=== PATIENT | female | born 1995 | race Caucasian/White ===

== ENCOUNTER 2024-02-22 05:25 | Inpatient (IN) ==
--- NOTE | 2024-02-15 10:34 | PAT Medication Instructions ---
Medication Instructions Date of Service February 15, 2024 Home Medications Medication Instructions Recorded acetone (urine) test (Ketone Urine #50 ea 01/04/24 Test strips) blood sugar diagnostic (OneTouch #350 ea 01/04/24 Verio test strips) blood-glucose meter (OneTouch #1 ea 01/04/24 Verio Reflect Meter) lancets 33 gauge (OneTouch Delica #150 ea 01/04/24 Plus Lancet) vit 168-iron 27 mg-folic acid 800 mcg-omega3 235 mg capsule (One-A-Day -1) 1 cap PO DAILY heparin, porcine (PF) 5,000 unit/0.5 mL subcutaneous syringe 5,000 unit subcut Q12H ASK your prescriber and surgeon heparin, porcine (PF) 5,000 unit/0.5 mL subcutaneous syringe 5,000 unit subcut Q12H DO NOT take the morning of surgery vit 168-iron 27 mg-folic acid 800 mcg-omega3 235 mg capsule (One-A-Day -1) 1 cap PO DAILY Other Notes *NOTHING TO EAT OR DRINK AFTER MIDNIGHT* If you have any questions please call us at [phone] or [phone] or [phone] or [phone]
--- NOTE | 2024-02-19 09:28 | Anesthesiology Consultation ---
Date of Service February 19, 2024 Assessment & Plan (1) Encounter for pre-operative examination: - Infectious disease screening: Per assessment on 02/15/24: No known infectious disease contacts or current infectious disease symptoms. No noted recent Covid positive test result. - [facility] ER visit (01/21/24): "The patient is a 28-year-old female who states that she is currently 36 weeks , presents the emergency department with chief complaint of right lower extremity edema.. Ultrasound imaging of the right lower extremity was obtained and there is no evidence of DVT. Patient's lab work is without any critical findings otherwise. Patient denies any chest pain or shortness of breath. On my reassessment patient is resting comfortably in bed. She will be discharged with plan for PCP and [facility] follow-up. She will continue to take her Lovenox as prescribed. Patient was advised utilize compression stockings to the right lower extremity to help with peripheral edema." - Heparin instructions: Reviewed with Dr. Riley- recommendation to stop 24 hours prior to d/t neuraxial anesthesia. Patient seen at [facility] and confirmed that she was already advised last dose to be 02/20/24. Chart Review Chart Review: Acceptable Risk for Surgery and Patient seen in Pre Admission Testing History Surgery Operation Date: 02/22/24 07:30 Proposed Procedures p Section - Thi Rodriguez MD, FACOG Height/Weight Height: 5 ft 8 in Weight: 95.8 kg Allergies Allergy/AdvReac Type Severity Reaction Status Date / Time No Known Allergies Allergy Verified 02/19/24 13:44 Medications Home Medications Medication Instructions Recorded Confirmed Last Taken vit 168-iron 27 mg-folic 1 cap PO DAILY 07/08/23 02/22/24 02/21/24 acid 800 mcg-omega3 235 mg capsule (One-A-Day -1) acetone (urine) test (Ketone Urine #50 ea 01/04/24 02/22/24 Unknown Test strips) blood sugar diagnostic (OneTouch #350 ea 01/04/24 02/22/24 Unknown Verio test strips) blood-glucose meter (OneTouch #1 ea 01/04/24 02/22/24 Unknown Verio Reflect Meter) lancets 33 gauge (OneTouch Delica #150 ea 01/04/24 02/22/24 Unknown Plus Lancet) heparin, porcine (PF) 5,000 5,000 unit subcut Q12H 02/15/24 02/22/24 02/20/24 unit/0.5 mL subcutaneous syringe Past Medical History Medical History Factor V Leiden mutation Gestational diabetes Hx of blood clots JAMAL (2022), currently on heparin injection Anxiety Hx GERD (gastroesophageal reflux disease) Hx, no current issues Exercise / Class Metabolic Activity II 4-5 Yardwork/Stairs/Walk up hill Past Family History Family History Father Diabetes Past Surgical History Surgical History No history of previous surgery Past Anesthesia History No Hx of Anesthesia Complications and No Family Hx of Anesthesia Complications History of PONV No Hx of PONV and Hx of Motion Sickness Social History Smoking Status: Never smoker Do You Dip or Chew Tobacco: No Hx Alcohol Use: Yes (not while ) alcohol intake frequency: holidays/special occasions only Hx Substance Use: No substance use type: does not use Review of Systems Patient denies chest pain, shortness of breath, dyspnea on exertion, fever, chills, cough, wheezing, palpitations. Physical Exam Vital Signs Last Vital Signs Temp 37.0 C 02/22/24 06:14 Pulse 116 H 02/22/24 05:48 Resp 18 02/22/24 06:14 BP 125/78 02/22/24 05:48 BP 106/69 P 80 TEMP 98.8 SP02 95%RA RESP 18 Physical Full cervical extension range of motion. Full TMJ range of motion. TMD > 3.5 finger breaths Mallampati Score 2 Dentition: intact Lungs: clear throughout to auscultation Cardiac: regular rate and rhythm, no murmurs noted Spine: normal Extremities: no LE edema Lab Results Anesthesia Preop Results Results Anesthesia Widget: 2 WBC 10.87 K/ul (4.8-10.8) H 02/22/24 Hgb 13.1 g/dl (12.0-16.0) 02/22/24 Hct 38.4 % (37.0-47.0) 02/22/24 Plt 219 K/uL (130-400) 02/22/24 Na 133 mmol/L (136-145) L 01/21/24 K 3.9 mmol/L (3.5-5.1) 01/21/24 Cl 104 mmol/L (98-107) 01/21/24 CO2 20 mmol/L (21-32) L 01/21/24 BUN 7 mg/dl (6-23) 01/21/24 Creat 0.42 mg/dl (0.6-1.2) L 01/21/24 Glucose Level 81 mg/dl (70-99(Fasting)) 01/21/24 POC Glucose 96 mg/dl (70-99) 02/22/24 PT 9.9 Seconds (9.0-12.0) 01/21/24 INR 0.9 (0.9-1.1) 01/21/24 Blood Type O Positive 02/22/24 Antibody Screen NEGATIVE 02/22/24 Testing Laboratory Results 02/22/24 05:40 Blood Type O Positive 02/22/24 05:40 Antibody Screen NEGATIVE 02/22/24 05:40 02/22/24 05:55 POC Glucose 96 Other Testing Venous doppler study Date: 01/21/24 FINDINGS: Deep veins: Unremarkable. No DVT in the visualized common femoral, femoral, proximal deep femoral or popliteal veins. The veins demonstrate normal color flow, are normally compressible, with normal phasic flow and/or augmentation response. Superficial veins: Unremarkable. No thrombus in the visualized great saphenous vein. Soft tissues: No acute findings. No popliteal cyst. IMPRESSION: Normal right lower extremity duplex venous ultrasound.
--- NOTE | 2024-02-19 16:44 | History & Physical Report ---
Date of Service February 19, 2024 Assessment & Plan (1) Gestational diabetes mellitus (GDM) affecting , antepartum: (2) Group beta Strep positive: (3) Factor V Leiden mutation: Plan Still breech, plan primary ltcs. The risks of surgery were discussed with the patient including the risks of anesthesia, bleeding requiring transfusion, infection, poor wound healing, urinary retention, damage to surrounding structures including bowels, bladder, vessels, nerves and ureters that may require further surgery, hospitalization or intervention. The other risks of any surgery were discussed including heart attack, blood clots, stroke or . Discussed risk of injury to the baby. Last dose of heparin Sat night, none on thursday. Plan to restart Lovenox PP. Questions asked and answered and consent signed. History of Present Illness Chief Complaint: breech Primary Care Provider: Estefania Lester PA-C Patient is a 28yowf with iup at 39 2/7 weeks with a breech baby. >95% head circumference and lga on measurement. GBS positive. GDM diet controlled. Is on heparin for hx of superficial blood clot and Factor V heterozygote. and Delivery Plans Factov V Leiden - heterozygous, personal h/o superficial thrombophlebitis *Heme consult (11/12/22) -Lovenox > Heparin at 36 weeks Positive lupus anticoagulant prior to *Recommend rpt and additional labs that patient has not completed GBS positive urine-treat in labor GDM w/28wk glucola *Begin monthly Growth US's Suspected LGA - EFW/AC >98% at 34 weeks - Growth US at 37/38 weeks - Offer IOL at 39 weeks - If cephalic BREECH PRESENTATION C/S SCHEDULED FOR 02/22/[address] BENAVIDEZ PAT CONSULT SCHEDULED FOR 02/18 @ 1517 FOR HEPARIN OB Labs: Blood Type O Positive 07/15/23 Antibody Screen NEGATIVE 07/15/23 Hemoglobin 12.9 g/dl (12.0-16.0) 01/21/24 Hematocrit 37.0 % (37.0-47.0) 01/21/24 Mean Corpuscular Volume 89.4 fL (80.0-100.0) 01/21/24 Platelet Count 189 K/uL (130-400) 01/21/24 Rubella IgG Antibody Immune (Immune) 07/15/23 Rapid Plasma Reagin Nonreactive (Nonreactive) 07/15/23 Hepatitis B Surface Antigen. NON-REACTIVE (NON-REACTIVE) 07/15/23 Hepatitis C Antibody (EIA) NON-REACTIVE (NON-REACTIVE) 07/15/23 HIV (1&2) Ag and Ab Confirmation NON-REACTIVE (NON-REACTIVE) 07/15/23 Glucose 1 Hour 50 gm Load 168 mg/dl (70-130) H 12/10/23 OB Optional Labs: Chlamydia trachomatis RNA Not Detected (NotDetected) 07/15/23 Neisseria gonorrhoeae RNA Not Detected (NotDetected) 07/15/23 Thyroid Stimulating Hormone (TSH) 3.900 uIu/ml (0.300-4.500) 08/17/21 Labs Reviewed: Declines genetics--mln gbs positive Allergies Allergy/AdvReac Type Severity Reaction Status Date / Time No Known Allergies Allergy Verified 02/19/24 13:44 Home Medications Medication Instructions Recorded Confirmed Type vit 168-iron 27 mg-folic 1 cap PO DAILY 07/08/23 02/19/24 History acid 800 mcg-omega3 235 mg capsule (One-A-Day -1) acetone (urine) test (Ketone Urine #50 ea 01/04/24 02/19/24 Rx Test strips) blood sugar diagnostic (OneTouch #350 ea 01/04/24 02/19/24 Rx Verio test strips) blood-glucose meter (OneTouch #1 ea 01/04/24 02/19/24 Rx Verio Reflect Meter) lancets 33 gauge (OneTouch Delica #150 ea 01/04/24 02/19/24 Rx Plus Lancet) heparin, porcine (PF) 5,000 5,000 unit subcut Q12H 02/15/24 02/19/24 History unit/0.5 mL subcutaneous syringe Patient History Medical History (Updated 02/19/24 @ 16:46 by Thi Benavidez MD, FACOG) Factor V Leiden mutation Gestational diabetes Hx of blood clots LUE (2022), currently on heparin injection Anxiety Hx GERD (gastroesophageal reflux disease) Hx, no current issues Surgical History No history of previous surgery Family History Father Diabetes Social History Smoking Status: Never smoker Second Hand Exposure: No; Do You Dip or Chew Tobacco: No; Hx Alcohol Use: Yes (not while ) Hx Substance Use: No Preferred Language: Marshallese Communication Ability: Effective Senior Chemical Process Engineer Required: No Beliefs That Will Affect Care: None marital status: Single marital status details: Hugo (27) [phone] Current Living Situation: Parent and Significant Other Current Living Situation Comment: lives with fob, 2 dogs. 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
[2024-02-22] MEDS: LACTATED RINGER'S 1,000 ML IV SCH (05:40)
[2024-02-22 06:15] LABS: Basophils # (auto) 0.03 K/uL (0.00-0.20); Basophils % (auto) 0.3 %; Eosinophils # (auto) 0.04 K/uL (0.00-0.50); Eosinophils % (auto) 0.4 %; Hematocrit (blood only) 38.4 % (37.0-47.0); Hemoglobin 13.1 g/dl (12.0-16.0); Immature Granulocytes # (auto) 0.05 K/uL (0.01-0.20); Immature Granulocytes % (auto) 0.5 %; Lymphocytes % (auto) 23.9 %; Mean Corpuscular Hemoglobin 30.5 pg (25.0-34.0); Mean Corpuscular Hgb Conc 34.1 g/dL (32.0-36.0); Mean Corpuscular Volume 89.5 fL (80.0-100.0); Mean Platelet Volume 10.7 fL (9.4-12.4); Monocytes # (auto) 0.95 K/uL (0.11-0.59); Monocytes % (auto) 8.7 %; Neutrophils % (auto) 66.2 %; Platelet Count 219 K/uL (130-400); RDW Coefficient of Variation 12.2 % (11.5-14.5); RDW Standard Deviation 39.7 fL (36.4-46.3); Red Blood Count 4.29 M/uL (4.20-5.40); White Blood Count 10.87 K/ul (4.8-10.8)
[2024-02-22] MEDS ORDERED: LACTATED RINGER'S 1,000 ML IV SCH ×2 (06:30→10:16)
[2024-02-22] MEDS ORDERED: MoRPHine SULFATE PF 1 MG/ML 10 ML AMP/VIAL ONE (07:09)
--- NOTE | 2024-02-22 07:26 | History & Physical Bridge Note ---
Date of Service February 22, 2024 History & Physical Bridge Note I have examined the patient, reviewed the History & Physical and in the interval since the performance of the History & Physical I have noted the following changes of clinical significance: still breech by ultrasound. No changes.
[2024-02-22] MEDS: CITRIC ACID/SODIUM CITRATE 15 ML UDC PO SCH (07:31)
[2024-02-22] MEDS: ceFAZolin 2000MG 2,000 MG/15 ML SYR IV SCH (07:31)
[2024-02-22] MEDS ORDERED: NALOXONE HCL 0.08 MG in SYRINGE 1.8 ML IV PRN (08:04)
[2024-02-22] MEDS ORDERED: LACTATED RINGER'S 500 ML IV PRN (08:04)
[2024-02-22] MEDS ORDERED: NALOXONE HCL 1 MG in SODIUM CHLORIDE 0.9% 1,000 ML IV PRN (08:04)
[2024-02-22] MEDS ORDERED: MoRPHine SULFATE 2 MG/ML CARP IV PRN (08:04)
[2024-02-22] MEDS ORDERED: NALBUPHINE HCL 5 MG in SYRINGE 0 ML IV PRN (08:04)
[2024-02-22] MEDS ORDERED: NALOXONE HCL 0.4 MG/1 ML VIAL/CARP IV PRN (08:04)
[2024-02-22] MEDS ORDERED: ePHEDrine sulfate 50 MG/ML AMP IV PRN (08:04)
[2024-02-22] MEDS ORDERED: PROMETHAZINE HCL 6.25 MG in SODIUM CHLORIDE 0.9% 50 ML IV PRN (08:04)
[2024-02-22] MEDS ORDERED: MoRPHine SULFATE PF 1 MG/ML 10 ML AMP/VIAL INT SPINAL ONE (08:04)
[2024-02-22] MEDS ORDERED: diphenhydrAMINE 50 MG/ML VIAL IV PRN ×2 (08:04→10:16)
[2024-02-22] MEDS ORDERED: ONDANSETRON INJ 2 MG/ML 2 ML VIAL IV PRN ×2 (08:04→10:16)
[2024-02-22] MEDS ORDERED: PHENYLEPHRINE 100MCG/ML 10ML SYR IV ONE (08:14)
[2024-02-22] MEDS ORDERED: METOCLOPRAMIDE HCL INJ 5 MG/ML 2 ML VIAL ONE (08:14)
[2024-02-22] MEDS ORDERED: ONDANSETRON INJ 2 MG/ML 2 ML VIAL ONE (08:14)
[2024-02-22] MEDS ORDERED: OXYTOCIN 10 UNITS/ML VIAL ONE (08:14)
[2024-02-22] MEDS ORDERED: ePHEDrine sulfate 50 MG/5 ML SYR ONE (08:14)
[2024-02-22] MEDS ORDERED: SODIUM CHLORIDE 0.9% 1,000 ML IV SCH (08:15)
[2024-02-22] MEDS ORDERED: NO NARCOTICS OR SEDATIVES SCH (08:15)
[2024-02-22] MEDS ORDERED: DC INTRASPINAL MORPHINE SCH (08:15)
[2024-02-22 08:28] LABS: Base Excess Cord Arterial Bld -2.9 mEq/L (-9-1.8); Base Excess Cord Venous Blood -2.8 mEq/L (-7.7-1.9); CO2 Cord Arterial Blood 66 mmHg (39.1-73.5); Cord Venous Blood HCO3 25 mmol/L (18.4-26.8); Cord Venous Blood PCO2 58 mmHg (30.4-57.2); Cord Venous Blood PO2 < 20 mmHg (14.1-43.3); Cord Venous Blood pH 7.25 (7.20-7.44); HCO3 Cord Arterial Blood 26 mmol/L (19.7-28.5); O2 Saturation Cord Venous Bld < 60.0 % (<68); Oxygen Sat Cord Arterial Blood < 60.0 % (<60); PO2 Cord Arterial Blood < 20 mmHg (4.1-31.7); pH Cord Arterial Blood 7.21 (7.1-7.38)
--- NOTE | 2024-02-22 08:48 | Operative Report ---
PG Post Operative Report Pre & Post Diagnosis Operation Date: 02/22/24 07:30 Pre-Op Diagnosis: Breech Presentation. at 39 weeks Post-Op Diagnosis: Breech Presentation, at 39 weeks I identified the patient and participated in the time-out.: Yes Procedure Operation Date: 02/22/24 07:30 Actual Procedures p Primary lower transverse Section delivery of live female child at 0758 - Thi Rodriguez MD, FACOG Surgeon Thi Rodriguez MD, FACOG Catering Service Manager Dr. Hernandez Estimated Blood Loss 376 Findings Consistent with Post-Op Diagnosis viable female infant in urmila breech presentation, meconium fluid normal uterus/tubes/ovs bilaterally Fluids 2000cc uop--50cc Specimens none Drains noble Anesthesia Type Spinal Complications none Disposition Accompanied Patient To Recovery: Yes Disposition: L&D Indications with iup at 39 weeks with persistent breech presentation Description of Procedure The patient was taken to the operating room where she was identified verbally and by bracelet. She was seated on the operating table where a spinal anesthetic was placed by anesthesia. She was then placed in the supine position with a leftward tilt. A Noble catheter was placed sterilely. the patient was prepped and draped in a normal standard fashion. the anesthetic was tested and found to be adequate. A time-out was held, identifying correct patient, procedure, positioning and preoperative antibiotics. There were no concerns. A Pfannenstiel skin incision was made with a knife and taken down to the underlying layer of fascia with the knife and Bovie electrocautery. Bleeding was attended to with the Bovie. The fascia was incised in the midline with the knife and taken out laterally with scissors. The superior edge of the fascial incision was grasped, elevated and the underlying layer of rectus muscle was taken off bluntly and with scissors. In a similar fashion, the inferior edge of the fascial incision was grasped, elevated and the underlying layer of rectus muscle was taken off bluntly and with scissors. The muscles were bluntly in the midline. The peritoneum was entered bluntly. The incision was then stretched. The bladder blade was placed. The vesicouterine peritoneum was identified, entered with scissors and taken out laterally with scissors. The bladder flap was created digitally A hysterotomy incision was scored with a knife and the incision was stretched superiorly and inferiorly with the sweatband decorating machine operator's fingers. The operators hand was placed into the incision and the head was delivered atraumatically. No nuchal cord. The nose and mouth were bulb suctioned. the rest of the was then delivered without difficulty. The nose and mouth were again bulb suctioned. The cord was clamped and cut and the infant was then handed off to the awaiting master motorcycle technician for drying and attention. Cord blood and segment were obtained. The placenta was Manually extracted. The uterus was exteriorized and cleared of all clot and debris with moistened laparotomy sponges. The hysterotomy incision was repaired in two layers, the first in a running locked layer, the second in an imbricating layer. Hemostasis was noted to be good. Posterior cul-de-sac was irrigated and cleared of all clot and debris. The hysterotomy incision was again inspected and found to be hemostatic. the uterus was reinteriorized. Hysterotomy incision was again inspected and found to be hemostatic. Rectus muscles were reapproximated with several interrupted stitches of 0 Vicryl. The fascia was then reapproximated with 0 Vicryl starting at the edges and meeting in the midline. The subcuticular tissues were copiously irrigated and bleeding was attended to with cautery. The skin was then closed with 4-0 Vicryl in a subcuticular fashion. All sponge, lap and needle count correct x 2. The patient was taken to labor and delivery in stable condition. I attest to the content of the Intraoperative Record and any orders documented therein. Any exceptions are noted below.
[2024-02-22] MEDS: KETOROLAC 30 MG/ML VIAL IV PRN (10:11)
[2024-02-22] MEDS ORDERED: MAGNESIUM HYDROXIDE SUSP 30 ML UDC PO PRN (10:16)
[2024-02-22] MEDS ORDERED: MEPERIDINE HCL 50 MG/ML CARP IV PRN (10:16)
[2024-02-22] MEDS ORDERED: diphenhydrAMINE Capsule 25 MG CAP PO PRN (10:16)
[2024-02-22] MEDS ORDERED: SENNA 8.6 MG TAB PO PRN (10:16)
[2024-02-22] MEDS ORDERED: KETOROLAC 30 MG/ML VIAL IV PRN (10:16)
[2024-02-22] MEDS ORDERED: PROMETHAZINE HCL 25 MG in SODIUM CHLORIDE 0.9% 50 ML IV PRN (10:16)
[2024-02-22] MEDS ORDERED: HYDROCORTISONE ACETATE 25 MG SUPP PR PRN (10:16)
[2024-02-22] MEDS ORDERED: BENZOCAINE 20% SPRY 85 APPLN/85 GM CAN EXT PRN (10:16)
[2024-02-22] MEDS: OXYTOCIN 20 UNITS/LR 1,002 ML IV SCH (11:05)
[2024-02-22] MEDS: SIMETHICONE 80 MG CHEW PO SCH (14:13)
--- NOTE | 2024-02-22 14:32 | Anesthesiology Progress Note ---
Date of Service February 22, 2024 Anesthesia Post Procedure Vital Signs Vital Signs: Temp Pulse Pulse Resp BP BP Pulse Ox 02/22/24 13:20 16 98 02/22/24 11:35 18 100 02/22/24 11:35 36.7 C 78 18 124/87 100 02/22/24 11:01 77 99 02/22/24 10:56 74 98 02/22/24 10:51 70 97 02/22/24 10:46 73 98 02/22/24 10:41 74 98 02/22/24 10:36 71 98 02/22/24 10:33 81 99 02/22/24 10:29 36.9 C 16 02/22/24 10:29 86 122/70 02/22/24 10:28 73 98 02/22/24 10:23 77 98 02/22/24 10:19 80 108/62 02/22/24 10:18 81 99 02/22/24 10:13 75 99 02/22/24 10:09 76 113/66 02/22/24 10:08 91 H 98 02/22/24 10:03 81 97 02/22/24 09:59 20 02/22/24 09:59 75 115/67 02/22/24 09:58 88 97 02/22/24 09:53 77 100 02/22/24 09:49 70 118/74 02/22/24 09:48 79 100 02/22/24 09:43 85 94 02/22/24 09:39 84 121/80 02/22/24 09:38 71 100 02/22/24 09:33 74 99 02/22/24 09:30 36.5 C 16 02/22/24 09:29 84 117/68 02/22/24 09:28 81 99 02/22/24 09:23 83 99 02/22/24 09:22 94 H 14 118/71 02/22/24 09:19 16 02/22/24 09:19 94 H 118/71 02/22/24 09:18 76 98 02/22/24 09:13 78 98 02/22/24 09:09 16 02/22/24 09:09 119/68 02/22/24 09:08 79 99 02/22/24 09:03 89 99 02/22/24 08:59 16 02/22/24 08:59 16 02/22/24 08:59 77 116/66 02/22/24 08:58 74 99 02/22/24 08:53 82 100 02/22/24 08:49 86 122/70 02/22/24 08:49 78 115/57 L 02/22/24 08:48 78 99 02/22/24 08:43 84 99 02/22/24 08:39 16 02/22/24 08:39 93 H 112/55 L 02/22/24 08:38 95 H 100 02/22/24 08:33 86 100 02/22/24 08:29 36.8 C 20 02/22/24 08:29 86 119/59 L 02/22/24 06:14 37.0 C 18 02/22/24 05:59 37.0 C 18 02/22/24 05:48 116 H 125/78 02/22/24 05:46 37.0 C 18 02/22/24 05:30 18 02/22/24 05:30 37.0 C 18 O2 Del Method 02/22/24 13:20 02/22/24 11:35 02/22/24 11:35 Room Air 02/22/24 11:01 02/22/24 10:56 02/22/24 10:51 02/22/24 10:46 02/22/24 10:41 02/22/24 10:36 02/22/24 10:33 02/22/24 10:29 02/22/24 10:29 02/22/24 10:28 02/22/24 10:23 02/22/24 10:19 02/22/24 10:18 02/22/24 10:13 02/22/24 10:09 02/22/24 10:08 02/22/24 10:03 02/22/24 09:59 02/22/24 09:59 02/22/24 09:58 02/22/24 09:53 02/22/24 09:49 02/22/24 09:48 02/22/24 09:43 02/22/24 09:39 02/22/24 09:38 02/22/24 09:33 02/22/24 09:30 02/22/24 09:29 02/22/24 09:28 02/22/24 09:23 02/22/24 09:22 02/22/24 09:19 02/22/24 09:19 02/22/24 09:18 02/22/24 09:13 02/22/24 09:09 02/22/24 09:09 02/22/24 09:08 02/22/24 09:03 02/22/24 08:59 02/22/24 08:59 02/22/24 08:59 02/22/24 08:58 02/22/24 08:53 02/22/24 08:49 02/22/24 08:49 02/22/24 08:48 02/22/24 08:43 02/22/24 08:39 02/22/24 08:39 02/22/24 08:38 02/22/24 08:33 02/22/24 08:29 02/22/24 08:29 02/22/24 06:14 02/22/24 05:59 02/22/24 05:48 02/22/24 05:46 02/22/24 05:30 02/22/24 05:30 Pain Intensity Bilateral Abdomen: Pain Intensity: 2 Transfer of Care Handoff Completed per policy Notes Mental Status: alert / awake / arousable Patient Amnestic to Procedure: Yes Nausea / Vomiting: adequately controlled Pain: adequately controlled Airway Patency, RR, SpO2: stable & adequate BP & HR: stable & adequate Hydration State: stable & adequate Neuraxial Anesthesia: was administered and sensory block is resolving Anesthetic Complications: no major complications apparent
[2024-02-22] MEDS: DIPHTHER/TETAN/PERTUS Vaccine (Tdap, Adol/Adult) 0.5mL IM ONE (17:38)
[2024-02-22] MEDS: LACTATED RINGER'S 500 ML IV ONE (17:40)
[2024-02-22] MEDS: DOCUSATE SODIUM 100 MG CAP PO SCH (21:37)
[2024-02-23] MEDS: oxyCODONE/ACETAMINOPHEN 5mg/325mg TAB PO PRN (03:32)
[2024-02-23 06:45] LABS: Basophils # (auto) 0.03 K/uL (0.00-0.20); Basophils % (auto) 0.3 %; Eosinophils # (auto) 0.07 K/uL (0.00-0.50); Eosinophils % (auto) 0.6 %; Hematocrit (blood only) 36.1 % (37.0-47.0); Hemoglobin 11.8 g/dl (12.0-16.0); Immature Granulocytes # (auto) 0.06 K/uL (0.01-0.20); Immature Granulocytes % (auto) 0.5 %; Lymphocytes # (auto) 2.16 K/uL (1.20-3.40); Lymphocytes % (auto) 18.1 %; Mean Corpuscular Hemoglobin 30.5 pg (25.0-34.0); Mean Corpuscular Hgb Conc 32.7 g/dL (32.0-36.0); Mean Corpuscular Volume 93.3 fL (80.0-100.0); Mean Platelet Volume 11.1 fL (9.4-12.4); Monocytes # (auto) 1.22 K/uL (0.11-0.59); Monocytes % (auto) 10.2 %; Neutrophils # (auto) 8.42 K/uL (1.40-6.50); Neutrophils % (auto) 70.3 %; Platelet Count 188 K/uL (130-400); RDW Coefficient of Variation 12.5 % (11.5-14.5); RDW Standard Deviation 42.4 fL (36.4-46.3); Red Blood Count 3.87 M/uL (4.20-5.40); White Blood Count 11.96 K/ul (4.8-10.8)
[2024-02-23] MEDS: FERROUS SULFATE 325 MG TAB PO SCH (08:24)
[2024-02-23] MEDS: PRENATAL VITAMIN 1 TAB PO SCH (08:24)
[2024-02-23] MEDS: IBUPROFEN 600 MG TAB PO PRN (08:25)
--- NOTE | 2024-02-23 08:37 | Obstetrical Progress Note ---
Date of Service February 23, 2024 Assessment & Plan (1) delivery delivered: Plan Doing well. Routine care. Day #:: 1 Subjective Ambulation: ambulating normally Voiding: no voiding problems Passing Gas:: No Diet Tolerance:: regular diet Lochia:: Small Feeding Type:: breast feeding Feeling well this am. Pain controlled. Physical Exam Constitutional WD/WN, vitals as above Neck trachea midline, no thyromegaly Respiratory normal respiratory effort, lungs clear to auscultation Cardiovascular RRR, no murmur, no edema Gastrointestinal (Abdomen) soft, nt, nd ff/nt at u incision c/d/i Psychiatric A+Ox3, euthymic affect Results & Data Vital Signs (Past 12 Hours) Vital Signs Temp Pulse Resp BP Pulse Ox O2 Del Method 02/23/24 03:30 36.8 C 87 18 120/73 99 Room Air 02/23/24 02:05 18 97 02/23/24 01:09 18 98 02/23/24 00:00 20 97 02/22/24 23:30 36.9 C 91 H 18 112/66 97 Room Air 02/22/24 23:00 18 96 02/22/24 22:01 18 97 02/22/24 21:30 Room Air 02/22/24 21:30 36.7 C 90 18 108/68 97 Room Air 02/22/24 21:00 18 96
[2024-02-23 13:19] LABS: Creatinine Clr Calc Pharmacy 182.5 ml/min; Est GFR (African American) 148.1 ml/min; Est GFR (Non-African American) 127.8 ml/min
[2024-02-23] MEDS: ENOXAPARIN INJ 40 MG/0.4 ML SYR SQ SCH (15:04)
[2024-02-23] MEDS: bisacodyL 5 MG TABEC PO SCH (19:59)
--- NOTE | 2024-02-24 06:15 | Obstetrical Progress Note ---
Date of Service <Evelin Aparicio DO - Last Filed: 02/24/24 06:17> February 24, 2024 Assessment & Plan <Evelin Aparicio DO - Last Filed: 02/24/24 06:17> (1) care following delivery: Feels well today. Eating well, voiding well, ambulating well. Pain well controlled with percocet. Routine care; OOB, ambulation, diet progression as tolerated. Anticipate discharge 48-72 hrs after c section, today or tomorrow. After discharge will have 6 week follow-up with Dr Rodriguez. <Ivonne Ramsay MD - Last Filed: 02/24/24 07:14> (1) care following delivery: Subjective <Evelin Aparicio DO - Last Filed: 02/24/24 06:17> Pt is a 28 y/o female who is POD#2 following delivery for breech. Today, pt states she is feeling really good. She states she walked 10 laps around the floor yesterday and did well with it. Tolerating oral intake, voiding, and passing gas without issue. She is bottle feeding and it is going well. Pain has been fairly mild and lochia is minimal. No questions or complaints today. Constitutional: no fever, no chills or no sweats Respiratory: no dyspnea Cardiovascular: no chest pain or no palpitations Breast: no breast pain Genitourinary (female): no dysuria Neurologic: no headache(s) no changes in vision, no headaches <Ivonne Ramsay MD - Last Filed: 02/24/24 07:14> Pt is a 28 y/o female who is POD#1 following delivery for breech. Today, pt states she is feeling really good. She states she walked 10 laps around the floor yesterday and did well with it. Tolerating oral intake, voiding, and passing gas without issue. She is bottle feeding and it is going well. Pain has been fairly mild and lochia is minimal. No questions or complaints today. Physical Exam <Evelin Aparicio DO - Last Filed: 02/24/24 06:17> General: Alert, oriented. No acute distress. Cardiac: Regular rate and rhythm, no murmurs, rubs, or gallops. Respiratory: Clear to auscultation bilaterally, no wheezes/rales/rhonchi. No increased work of breathing. Symmetrical chest rise. No respiratory distress. Abdomen: Soft, nontender, nondistended. Bowel sounds present. Uterus: Uterine fundus firm, palpable below the umbilicus. Surgical scar clean and healing well. Steri-strips in place. Some superficial skin irritation noted Lower extremities: No lower extremity edema or swelling. No deep calf pain. Results & Data <Evelin Aparicio DO - Last Filed: 02/24/24 06:17> Vital Signs (Past 12 Hours) Vital Signs Temp Pulse Resp BP Pulse Ox O2 Del Method 02/24/24 00:20 36.5 C 93 H 18 133/78 97 Room Air 02/23/24 20:00 36.5 C 86 18 117/79 98 Room Air Supervising Physician <Ivonne Ramsay MD - Last Filed: 02/24/24 07:14> Co-Signing Physician Notes Resident Physician Supervision Note: I interviewed and examined the patient. Agree with findings and plan as documented in the note by Dr. Aparicio. Any exceptions or clarifications are listed here: [ ] Documented By: Ivonne Ramsay MD, FACOG Resident Activity Tracking <Evelin Aparicio DO - Last Filed: 02/24/24 06:17> Resident Involvement: Resident Care Provided Care Provided: Adult Hospital Medicine
[2024-02-24 06:28] LABS: Hematocrit (blood only) 31.7 % (37.0-47.0); Hemoglobin 10.5 g/dl (12.0-16.0)
[2024-02-24] MEDS ORDERED: bisacodyL 10 MG SUPP PR PRN (08:42)
--- NOTE | 2024-02-25 06:30 | Obstetrical Progress Note ---
Date of Service <Evelin Aparicio DO - Last Filed: 02/25/24 06:31> February 25, 2024 Assessment & Plan <Evelinadria Aparicio DO - Last Filed: 02/25/24 06:31> (1) care following delivery: Continuing to feel well today. Eating well, voiding well, ambulating well. Pain well controlled with percocet. Routine care; OOB, ambulation, continue reg diet. Anticipate discharge 48-72 hrs after c section, today. After discharge will have 6 week follow-up with Dr Rodriguez. <Radha Madison MD, FACOG - Last Filed: 02/25/24 08:47> (1) care following delivery: Subjective <Evelin Aparicio DO - Last Filed: 02/25/24 06:31> Pt is a 28 y/o female who is POD#3 following delivery for breech. Today, pt states she has been feeling really good. She states she has been able to walk the halls and around her room freely and has been tolerating intake, voiding, and passing gas without issue. They are bottle feeding and it is going well. Cramps are mild and improving. Lochia improving. Wishes to go home today if possible. Constitutional: no fever, no chills or no sweats Respiratory: no dyspnea Cardiovascular: no chest pain or no palpitations Breast: no breast pain Genitourinary (female): no dysuria Neurologic: no headache(s) Physical Exam <Evelin Aparicio DO - Last Filed: 02/25/24 06:31> General: Alert, oriented. No acute distress. Cardiac: Regular rate and rhythm, no murmurs, rubs, or gallops. Respiratory: Clear to auscultation bilaterally, no wheezes/rales/rhonchi. No increased work of breathing. Symmetrical chest rise. No respiratory distress. Abdomen: Soft, nontender, nondistended. Bowel sounds present. Uterus: Uterine fundus firm, palpable below the umbilicus. Surgical scar clean and healing well. Steri-strips in place. Some superficial skin irritation noted, unchanged from yesterday Lower extremities: No lower extremity edema or swelling. No deep calf pain. Results & Data <Evelin Aparicio DO - Last Filed: 02/25/24 06:31> Vital Signs (Past 12 Hours) Vital Signs Temp Pulse Pulse Resp BP Pulse Ox O2 Del Method 02/25/24 01:10 36.5 C 79 18 119/78 98 Room Air 02/24/24 21:00 Room Air 02/24/24 21:00 36.6 C 82 18 118/73 97 Room Air 02/24/24 19:41 36.8 C 86 16 118/72 99 Room Air Supervising Physician <Radha Madison MD, FACOG - Last Filed: 02/25/24 08:47> Co-Signing Physician Notes Resident Physician Supervision Note: I interviewed and examined the patient. Discussed with and agree with findings and plan as documented in the note. Any exceptions or clarifications are listed here: Will continue Lovenox daily until her 6 week follow up appt. Script sent to her pharmacy today. Documented By: Radha Madison MD, FACOG Resident Activity Tracking <Evelin Aparicio DO - Last Filed: 02/25/24 06:31> Resident Involvement: Resident Care Provided Care Provided: Adult Hospital Medicine
--- NOTE | 2024-02-26 13:34 | Discharge Summary ---
Date of Service February 26, 2024 Admission HPI Per Admitting Provider Patient is a 28yowf with iup at 39 2/7 weeks with a breech baby. >95% head circumference and lga on measurement. GBS positive. GDM diet controlled. Is on heparin for hx of superficial blood clot and Factor V heterozygote. and Delivery Plans Factov V Leiden - heterozygous, personal h/o superficial thrombophlebitis *Heme consult (11/12/22) -Lovenox > Heparin at 36 weeks Positive lupus anticoagulant prior to *Recommend rpt and additional labs that patient has not completed GBS positive urine-treat in labor GDM w/wk glucola *Begin monthly Growth US's Suspected LGA - EFW/AC >98% at 34 weeks - Growth US at 37/38 weeks - Offer IOL at 39 weeks - If cephalic BREECH PRESENTATION C/S SCHEDULED FOR 02/22/[address] BENAVIDEZ PAT CONSULT SCHEDULED FOR 02/18 @ 1515 FOR HEPARIN OB Labs: Blood Type O Positive 07/15/23 Antibody Screen NEGATIVE 07/15/23 Hemoglobin 12.9 g/dl (12.0-16.0) 01/21/24 Hematocrit 37.0 % (37.0-47.0) 01/21/24 Mean Corpuscular Volume 89.4 fL (80.0-100.0) 01/21/24 Platelet Count 189 K/uL (130-400) 01/21/24 Rubella IgG Antibody Immune (Immune) 07/15/23 Rapid Plasma Reagin Nonreactive (Nonreactive) 07/15/23 Hepatitis B Surface Antigen. NON-REACTIVE (NON-REACTIVE) 07/15/23 Hepatitis C Antibody (EIA) NON-REACTIVE (NON-REACTIVE) 07/15/23 HIV (1&2) Ag and Ab Confirmation NON-REACTIVE (NON-REACTIVE) 07/15/23 Glucose 1 Hour 50 gm Load 168 mg/dl (70-130) H 12/10/23 OB Optional Labs: Chlamydia trachomatis RNA Not Detected (NotDetected) 07/15/23 Neisseria gonorrhoeae RNA Not Detected (NotDetected) 07/15/23 Thyroid Stimulating Hormone (TSH) 3.900 uIu/ml (0.300-4.500) 08/17/21 Labs Reviewed: Declines genetics--mln gbs positive Discharge Data Consultations 02/22/24 05:30 Consult Anesthesiology Stat Procedures Performed Operation Date: 02/22/24 07:30 Actual Procedures p Section delivery of live female child at 0758 - Thi Benavidez MD, [facility] Course (1) delivery delivered: (2) Gestational diabetes mellitus (GDM) affecting , antepartum: (3) Group beta Strep positive: Plan Patient was admitting and underwent a primary low transverse c/s for breech on 02/21/23. QBL--376cc. Her /postop course was uncomplicated--tolerated a regular diet, ambulated without difficulty, voided after the removal of her noble cath, had her pain will controlled on oral pain meds. Started on Lovenox on POD#1 for history. d/c on 02/24. d/c h/h 10.5/31.7. f/u in the office in 6 weeks for pp visit. Coding Level of Care Code None Diagnoses delivery delivered O82 Gestational diabetes mellitus (GDM) affecting , antepartum O24.419 Group beta Strep positive B95.1
== END 2024-02-25 10:45 | disposition home or self-care (01) | DRG 787 ==
LOC: 4S1 05:25 → EDSTATUS 07:30 → 4E2 11:27
DX: O99.824 Streptococcus B carrier state complicating childbirth; Z83.3 Family history of diabetes mellitus; D68.51 Activated protein C resistance; Z37.0 Single live birth; O32.1XX0 Maternal care for breech presentation, not applicable or unspecified; O99.12 Other diseases of the blood and blood-forming organs and certain disorders involving the immune mechanism complicating childbirth; O24.429 Gestational diabetes mellitus in childbirth, unspecified control; Z3A.39 39 weeks gestation of pregnancy; O77.0 Labor and delivery complicated by meconium in amniotic fluid

== ENCOUNTER 2025-06-23 05:41 | Inpatient (IN) ==
--- NOTE | 2025-06-22 08:28 | History & Physical Report ---
Date of Service June 22, 2025 Assessment & Plan (1) Lupus anticoagulant affecting , antepartum: (2) Polyhydramnios affecting in third trimester: (3) Previous delivery affecting , antepartum: (4) Factor V Leiden mutation complicating : (5) Gestational diabetes mellitus (GDM) affecting , antepartum: Plan Patient presents for repeat c/s and tubal litation. Discussed permanence and that tubes will be removed entirely. The risks of surgery were discussed with the patient including the risks of anesthesia, bleeding requiring transfusion, infection, poor wound healing, urinary retention, damage to surrounding structures including bowels, bladder, vessels, nerves and ureters that may require further surgery, hospitalization or intervention. The other risks of any surgery were discussed including heart attack, blood clots, stroke or . Discussed small risk of injury to the baby. Consent reviewed and signed. Plan Lovenanyx PP. Questions answere. History of Present Illness Chief Complaint: presents for repeat c/s and tubal. Primary Care Provider: Estefania Lester PA-C Patient is a 30yowf at 39 5/7 who presents for repeat c/s and tubal ligation. complicated by what is noted below. Her last dose of heparin was yesterday am. GDM has been well controlled with diet. and Delivery Plans Transfer into care @ 15+ weeks Previous - Breech - Repeat at 39weeks w/BTL C/S WITH TUBAL SCHEDULED FOR 06/23/[address] 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 noted in last - Heme consult - Consider Rheum consult Suspected LGA - EFW 94% at 31 weeks - Growth US at 36 weeks--EFW >98% Polyhydramnios--------Resolved at 37wks *Weekly NSTs if fluid 12 or greater *Weekly AFIs @ Dx *If pocket >16 refer to MFM *Deliver between [id number] GBS Positive *Treat in Labor OB Labs: Blood Type O Positive 01/12/25 Antibody Screen NEGATIVE 01/12/25 Hgb 13.0 g/dl (12.0-16.0) 04/06/25 Hct 38.5 % (37.0-47.0) 04/06/25 MCV 93.3 fL (80.0-100.0) 02/23/24 Plt Count 188 K/uL (130-400) 02/23/24 Rubella IgG Antibody Immune (Immune) 07/15/23 RPR Nonreactive (Nonreactive) 07/15/23 Treponema pallidum Ab Negative (Negative) 04/06/25 Hep Bs Antigen NON-REACTIVE (NON-REACTIVE) 07/15/23 Hepatitis C Ab (EIA) NON-REACTIVE (NON-REACTIVE) 07/15/23 HIV (1&2) Ag & Ab Conf NON-REACTIVE (NON-REACTIVE) 07/15/23 Glucose 1 Hr 50 gm 168 mg/dl (70-130) H 12/10/23 OB Optional Labs: Chlamydia trachomatis RNA Not Detected (NotDetected) 07/15/23 Neisseria gonorrhoeae RNA Not Detected (NotDetected) 07/15/23 Thyroid Stimulating Hormone (TSH) 3.900 uIu/ml (0.300-4.500) 08/17/21 Labs Reviewed: Initial OB Labs 11/30/24 Blood Type & RH Antibody Screen HCT/HGB 39.9/13.9 Platelets 203 Hep C IgG 13yrs+ Old non reactive Pap Test Chlamydia not detected Gonorrhea non detected Rubella immune RPR non reactive Urine Culture/Screen HBsAg non reactive HIV non reactive MCV 88 Allergies Allergy/AdvReac Type Severity Reaction Status Date / Time No Known Allergies Allergy Verified 06/22/25 08:54 Home Medications Medication Instructions Recorded Confirmed Type vits 168-iron 27 mg-folic 1 cap PO DAILY 07/08/23 06/22/25 History acid 800 mcg-omega3 235 mg capsule (One-A-Day -1) acetone (urine) test (Ketone Urine #50 ea 02/09/25 06/22/25 Rx Test strips) blood sugar diagnostic (OneTouch #150 ea 02/09/25 06/22/25 Rx Verio test strips) blood-glucose meter (Vendor RegistryTouch #1 ea 02/09/25 06/22/25 Rx Verio Reflect Meter) lancets 33 gauge (OneTouch Delica #150 ea 02/09/25 06/22/25 Rx Plus Lancet) heparin (bovine) 5,000 unit/mL 5,000 unit BID 06/22/25 06/22/25 History injection solution Patient History Medical History Factor V Leiden Heterozygous, personal hx of superficial thrombophlebitis per OB records History of chicken pox Hx gestational diabetes denies this "bsg's have been good" Hx of blood clots JAMAL (2022)>on lovenox until 36 week and then switched to heparin *took last dose today Lupus anticoagulant disorder pt unsure of details Surgical History H/O section x 1 (02/2024) Family History Father Diabetes Other No family history of adverse response to anesthesia Denies family history of Ovarian cancer Breast cancer Colorectal cancer Social History Smoking Status: Never smoker Second Hand Exposure: No; Do You Dip or Chew Tobacco: No; Hx Alcohol Use: No Hx Substance Use: No Preferred Language: Burkinan Communication Ability: Effective Police Communications Operator Required: No Beliefs That Will Affect Care: None marital status: Single marital status details: Hugo Jc([phone] Current Living Situation: Family and Significant Other Current Living Situation Comment: boyfriend and daughter current occupational status: employed current occupation: [employer] Feels Safe at Home: Yes Assistive Devices: Glasses OB History Past Pregnancies Del. Date GA wks Lbr Lgth wt Sex Type del Anes Place Del Prov ? Comment 02/22/24 39 8lb 15.2oz F C-Secti on Spinal [facility] Dr. Benavidez N Breech GDM diet controlled [employer] History noncontributory Physical Exam Constitutional: WD/WN, vitals as above Psychiatric: A+Ox3, euthymic affect Coding Level of Care Code None Diagnoses Lupus anticoagulant affecting , antepartum O99.119; D68.62 Polyhydramnios affecting in third trimester O40.3XX0 Previous delivery affecting , antepartum O34.219 Factor V Leiden mutation complicating O99.119; D68.51 Gestational diabetes mellitus (GDM) affecting , antepartum O24.419
--- NOTE | 2025-06-22 09:05 | Anesthesiology Consultation ---
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 Solorzano aware) -Infectious Disease screening: Per PAT nursing assessment on 06/22/25. No known infectious disease contacts in past 10 days or current infectious disease symptoms. No recent travel outside the country. Per oncology/heme note 01/27/25= "Will prescribe prophylactic Lovenox again during . Peripartum the patient can be switched over to heparin to decrease the risk of bleeding. She will follow up if needed in heme clinic..." 02/22/24= Done under SAB at L3-4. History Surgery Operation Date: 06/23/25 07:30 Proposed Procedures p Section - Thi Rodriguez MD, FACOG s with Bilateral Tubal Ligation - Thi Rodriguez MD, FACOG Height/Weight Height: 5 ft 8 in Weight: 99.79 kg Allergies Allergy/AdvReac Type Severity Reaction Status Date / Time No Known Allergies Allergy Verified 06/22/25 08:54 Medications Home Medications Medication Instructions Recorded Confirmed Last Taken vits 168-iron 27 mg-folic 1 cap PO DAILY 07/08/23 06/23/25 1 Day Ago acid 800 mcg-omega3 235 mg capsule ~06/22/25 (One-A-Day -1) acetone (urine) test (Ketone Urine #50 ea 02/09/25 06/22/25 Unknown Test strips) blood sugar diagnostic (OneTouch #150 ea 02/09/25 06/22/25 Unknown Verio test strips) blood-glucose meter (OneTouch #1 ea 02/09/25 06/22/25 Unknown Verio Reflect Meter) lancets 33 gauge (OneTouch Delica #150 ea 02/09/25 06/22/25 Unknown Plus Lancet) heparin (bovine) 5,000 unit/mL 5,000 unit BID 06/22/25 06/23/25 1 Day Ago injection solution ~06/22/25 Active Medications Generic Name Dose Route Start Last Admin Trade Name Freq PRN Reason Stop Dose Admin Acetaminophen 1,000 mg 06/23/25 06:00 06/23/25 06:16 Acetaminophen 500 Mg Tab PO 06/23/25 16:00 1,000 mg PREOP ALMA DELIA Administration Cefazolin Sodium 3,000 mg in 72.5 mls @ 130 mls/hr 06/23/25 06:00 06/23/25 07:35 Ancef 3000mg IV 06/23/25 18:00 130 mls/hr PREOP ALMA DELIA Administration Past Medical History Medical History Factor V Leiden Heterozygous, personal hx of superficial thrombophlebitis per OB records History of chicken pox Hx gestational diabetes denies this "bsg's have been good" Hx of blood clots LUE (2022)>on lovenox until 36 week and then switched to heparin *took last dose today Lupus anticoagulant disorder pt unsure of details Past Family History Family History Father Diabetes Other No family history of adverse response to anesthesia Denies family history of Ovarian cancer Breast cancer Colorectal cancer Past Surgical History Surgical History H/O section x 1 (02/2024) Social History Smoking Status: Never smoker Do You Dip or Chew Tobacco: No Hx Alcohol Use: No alcohol intake frequency: holidays/special occasions only Hx Substance Use: No substance use type: does not use Physical Exam Vital Signs Last Vital Signs Temp 98.4 F 06/23/25 07:20 Pulse 90 06/23/25 07:20 Resp 18 06/23/25 07:20 BP 124/82 06/23/25 07:20 O2 Del Method Room Air 06/23/25 07:11 Testing Laboratory Results 06/23/25 05:50 Blood Type O Positive 06/23/25 05:50 Antibody Screen NEGATIVE 06/23/25 05:50 06/23/25 06:40 POC Glucose 98
[2025-06-23 06:03] LABS: Hematocrit (blood only) 40.7 % (37.0-47.0); Hemoglobin 14.1 g/dl (12.0-16.0); Immature Granulocytes # (auto) 0.04 K/uL (0.01-0.20); Immature Granulocytes % (auto) 0.4 %; Mean Corpuscular Hemoglobin 30.3 pg (25.0-34.0); Mean Corpuscular Volume 87.5 fL (80.0-100.0); Platelet Count 197 K/uL (130-400); RDW Standard Deviation 39.8 fL (36.4-46.3); Red Blood Count 4.65 M/uL (4.20-5.40); White Blood Count 9.22 K/ul (4.8-10.8)
[2025-06-23] MEDS: LACTATED RINGER'S 1,000 ML IV SCH ×2 (06:08→11:26)
[2025-06-23] MEDS: CITRIC ACID/SODIUM CITRATE 15 ML UDC PO SCH (06:16)
[2025-06-23] MEDS: ACETAMINOPHEN 500 MG TAB PO SCH (06:16)
[2025-06-23] MEDS ORDERED: ONDANSETRON INJ 2 MG/ML 2 ML VIAL ONE (06:23)
[2025-06-23] MEDS ORDERED: PHENYLEPHRINE HCL 25 MG/250 ML NSS IV ONE (06:23)
[2025-06-23] MEDS ORDERED: MoRPHine SULFATE PF 1 MG/ML 10 ML AMP/VIAL ONE (06:23)
[2025-06-23] MEDS ORDERED: OXYTOCIN 10 UNITS/ML VIAL ONE (06:23)
[2025-06-23] MEDS ORDERED: DEXAMETHASONE SOD INJ 4 MG/ML VIAL ONE (06:23)
[2025-06-23] MEDS ORDERED: SODIUM CHLORIDE 0.9% 100 ML IV PRN (06:31)
--- NOTE | 2025-06-23 07:07 | History & Physical Bridge Note ---
Date of Service June 23, 2025 History & Physical Bridge Note I have examined the patient, reviewed the History & Physical and in the interval since the performance of the History & Physical I have noted the following changes of clinical significance: no changes noted
[2025-06-23] MEDS: ceFAZolin 3,000 MG/72.5 ML BAG IV SCH (07:35)
[2025-06-23] MEDS ORDERED: NALOXONE HCL 0.4 MG/1 ML VIAL/CARP IV PRN ×2 (07:57→09:02)
[2025-06-23] MEDS ORDERED: diphenhydrAMINE 50 MG/ML VIAL IV PRN ×2 (07:57→09:02)
[2025-06-23] MEDS ORDERED: NALBUPHINE HCL INJ 10 MG/ML AMP IV PRN ×2 (07:57→09:02)
[2025-06-23] MEDS ORDERED: NALOXONE HCL 1 MG in SODIUM CHLORIDE 0.9% 1,000 ML IV PRN ×2 (07:57→09:02)
[2025-06-23] MEDS ORDERED: PROMETHAZINE 6.25 MG/50.25 ML BAG IV PRN ×2 (07:57→09:02)
[2025-06-23] MEDS ORDERED: NALOXONE HCL 0.08 MG in SYRINGE 1.8 ML IV PRN ×2 (07:57→09:02)
[2025-06-23] MEDS ORDERED: ONDANSETRON INJ 2 MG/ML 2 ML VIAL IV PRN (07:57)
[2025-06-23] MEDS ORDERED: HYDROmorphone INJ 0.5 MG/0.5 ML SYR IV PRN ×2 (07:57→09:02)
[2025-06-23] MEDS ORDERED: MoRPHine SULFATE PF 1 MG/ML 10 ML AMP/VIAL INT SPINAL ONE (07:57)
[2025-06-23] MEDS ORDERED: LACTATED RINGER'S 500 ML IV PRN ×2 (07:57→09:02)
[2025-06-23] MEDS ORDERED: NO NARCOTICS OR SEDATIVES SCH ×2 (08:00→09:15)
[2025-06-23] MEDS ORDERED: DC INTRASPINAL MORPHINE SCH ×2 (08:00→09:15)
[2025-06-23] MEDS ORDERED: SODIUM CHLORIDE 0.9% 1,000 ML IV SCH (08:00)
--- NOTE | 2025-06-23 08:46 | Operative Report ---
PG Post Operative Report Pre & Post Diagnosis Operation Date: 06/23/25 07:30 <No data on this case meets the specified criteria> Preop--iup at 39 weeks hx of previous c/s desires steriliztion postop--same I identified the patient and participated in the time-out.: Yes Procedure repeat lower transverse cs and bilateral salpingectomy Operation Date: 06/23/25 07:30 <No data on this case meets the specified criteria> Surgeon Thi Rodriguez MD, FACOG Foot Miter Operator David Estimated Blood Loss 319 Findings Consistent with Post-Op Diagnosis viable male infant in cephalic presentation, loose nuchal cord, apgars 8/9. normal appearing uterus tubes ovaries Fluids 800cc uop--150cc Specimens bilateral tubes Drains noble Anesthesia Type Spinal Complications none Disposition Accompanied Patient To Recovery: Yes Disposition: L&D Indications patient is a 30yowf with hx of c/s for breech. she desires repeat and tubal ligation. Description of Procedure The patient was taken to the operating room where she was identified verbally and by bracelet. She was seated on the operating table where a spinal anesthetic was placed by anesthesia. She was then placed in the supine position with a leftward tilt. A Noble catheter was placed sterilely. the patient was prepped and draped in a normal standard fashion. the anesthetic was tested and found to be adequate. A time-out was held, identifying correct patient, procedure, positioning and preoperative antibiotics. There were no concerns. A Pfannenstiel skin incision was made with a knife and taken down to the underlying layer of fascia with the knife. Bleeding was attended to with the Bovie. The fascia was incised in the midline with the knife and taken out laterally with scissors. The superior edge of the fascial incision was grasped, elevated and the underlying layer of rectus muscle was taken off bluntly and with scissors. In a similar fashion, the inferior edge of the fascial incision was grasped, elevated and the underlying layer of rectus muscle was taken off bluntly and with scissors. The muscles were bluntly in the midline. The peritoneum was entered bluntly. The incision was then stretched. The bladder blade was placed. The vesicouterine peritoneum was identified, entered with scissors and taken out laterally with scissors. The bladder flap was created digitally A hysterotomy incision was scored with a knife and the incision was stretched superiorly and inferiorly with the cut press operator's fingers. The operators hand was placed into the incision and the head was a tight fit. Vacuum called for and placed twice with two pop offs. The head was then delivered with fundal pressure. Loose nuchal cord x 1 reduced. The nose and mouth were bulb suctioned. the rest of the was then delivered without difficulty. The nose and mouth were again bulb suctioned. The cord was clamped and cut and the was then handed off to the awaiting real estate asset manager for drying and attention. Cord blood and segment were obtained. The placenta was Manually extracted. The uterus was exteriorized and cleared of all clot and debris with moistened laparotomy sponges. The hysterotomy incision was repaired in two layers, the first in a running locked layer, the second in an imbricating layer. Hemostasis was noted to be good. Posterior cul-de-sac was irrigated and cleared of all clot and debris. The hysterotomy incision was again inspected and found to be hemostatic. Then, the tubes were excised using the LigaSure first on the right and then on the left. Hemostasis was noted to be excellent. the uterus was reinteriorized. Hysterotomy incision was again inspected and found to be hemostatic. Rectus muscles were reapproximated with several interrupted stitches of 0 Vicryl. The fascia was then reapproximated with 0 Vicryl starting at the edges and meeting in the midline. The subcuticular tissues were copiously irrigated and bleeding was attended to with cautery. The skin was then closed with 4-0 Vicryl in a subcuticular fashion. All sponge , lap and needle counts were correct x 2 and the patient was taken to the recovery room in stable position. I attest to the content of the Intraoperative Record and any orders documented therein. Any exceptions are noted below.
[2025-06-23] MEDS ORDERED: MAGNESIUM HYDROXIDE SUSP 30 ML UDC PO PRN (08:51)
[2025-06-23] MEDS ORDERED: SENNA 8.6 MG TAB PO PRN (08:51)
[2025-06-23] MEDS ORDERED: CALCIUM CARBONATE 500 MG CHEWABLE TAB PO PRN (08:51)
[2025-06-23] MEDS ORDERED: BENZOCAINE 20% SPRY 85 APPLN/85 GM CAN EXT PRN (08:51)
[2025-06-23] MEDS ORDERED: HYDROCORTISONE ACETATE 25 MG SUPP PR PRN (08:51)
[2025-06-23] MEDS: OXYTOCIN 20 UNITS/LR 1,002 ML IV SCH (09:11)
[2025-06-23] MEDS: KETOROLAC 30 MG/ML VIAL IV SCH (09:12)
[2025-06-23] MEDS: DIPHTHER/TETAN/PERTUS Vaccine (Tdap, Adol/Adult) 0.5mL IM ONE (09:17)
[2025-06-23] MEDS: MoRPHine SULFATE PF 1 MG/ML 10 ML AMP/VIAL INT SPINAL ONE (11:26)
[2025-06-23] MEDS: SODIUM CHLORIDE 0.9% 1,000 ML IV SCH (11:26)
--- NOTE | 2025-06-23 13:23 | Anesthesiology Progress Note ---
Date of Service June 23, 2025 Anesthesia Post Procedure Vital Signs Vital Signs: Temp Pulse Pulse Resp BP BP Pulse Ox 06/23/25 13:00 16 100 06/23/25 12:12 18 100 06/23/25 11:40 97.5 F L 79 18 121/80 100 06/23/25 11:00 18 100 06/23/25 10:38 97.9 F 68 16 134/71 06/23/25 10:38 68 134/71 06/23/25 10:36 75 100 06/23/25 10:31 76 96 06/23/25 10:26 77 100 06/23/25 10:21 76 100 06/23/25 10:16 74 99 06/23/25 10:11 81 100 06/23/25 10:08 97.9 F 68 18 118/71 99 06/23/25 10:08 72 118/71 06/23/25 10:06 81 100 06/23/25 10:01 83 100 06/23/25 09:59 81 120/83 06/23/25 09:56 76 100 06/23/25 09:51 84 100 06/23/25 09:48 78 112/76 06/23/25 09:46 80 100 06/23/25 09:44 79 91 06/23/25 09:41 80 99 06/23/25 09:38 97.9 F 67 18 114/75 100 06/23/25 09:38 80 114/75 06/23/25 09:36 78 100 06/23/25 09:31 74 100 06/23/25 09:28 97.7 F 79 18 115/75 99 06/23/25 09:28 79 115/75 06/23/25 09:26 79 100 06/23/25 09:21 80 100 06/23/25 09:18 97.7 F 79 16 119/71 100 06/23/25 09:18 80 119/71 06/23/25 09:16 81 100 06/23/25 09:11 80 100 06/23/25 09:08 97.7 F 78 16 121/72 100 06/23/25 09:08 83 121/72 06/23/25 09:06 88 100 06/23/25 09:01 87 100 06/23/25 08:58 97.7 F 84 18 123/74 100 06/23/25 08:58 76 123/74 06/23/25 08:56 78 100 06/23/25 08:51 82 100 06/23/25 08:48 98.1 F 82 16 118/68 06/23/25 08:48 82 118/68 06/23/25 08:46 104 H 100 06/23/25 08:41 91 H 98 06/23/25 08:38 98.2 F 86 18 117/65 100 06/23/25 08:36 87 117/65 100 06/23/25 07:20 98.4 F 18 06/23/25 07:20 90 124/82 06/23/25 07:11 06/23/25 06:05 96 H 121/81 06/23/25 05:53 98.2 F 16 O2 Del Method 06/23/25 13:00 06/23/25 12:12 06/23/25 11:40 Room Air 06/23/25 11:00 06/23/25 10:38 06/23/25 10:38 06/23/25 10:36 06/23/25 10:31 06/23/25 10:26 06/23/25 10:21 06/23/25 10:16 06/23/25 10:11 06/23/25 10:08 06/23/25 10:08 06/23/25 10:06 06/23/25 10:01 06/23/25 09:59 06/23/25 09:56 06/23/25 09:51 06/23/25 09:48 06/23/25 09:46 06/23/25 09:44 06/23/25 09:41 06/23/25 09:38 06/23/25 09:38 06/23/25 09:36 06/23/25 09:31 06/23/25 09:28 06/23/25 09:28 06/23/25 09:26 06/23/25 09:21 06/23/25 09:18 06/23/25 09:18 06/23/25 09:16 06/23/25 09:11 06/23/25 09:08 06/23/25 09:08 06/23/25 09:06 06/23/25 09:01 06/23/25 08:58 06/23/25 08:58 06/23/25 08:56 06/23/25 08:51 06/23/25 08:48 06/23/25 08:48 06/23/25 08:46 06/23/25 08:41 06/23/25 08:38 06/23/25 08:36 06/23/25 07:20 06/23/25 07:20 06/23/25 07:11 Room Air 06/23/25 06:05 06/23/25 05:53 Transfer of Care Handoff Completed per policy Notes Mental Status: alert / awake / arousable and participated in evaluation Patient Amnestic to Procedure: No Nausea / Vomiting: adequately controlled Pain: adequately controlled Airway Patency, RR, SpO2: stable & adequate BP & HR: stable & adequate Hydration State: stable & adequate Neuraxial Anesthesia: was administered and sensory block is resolving Anesthetic Complications: no major complications apparent and Pt Satisfied with anesthetic care
[2025-06-23] MEDS: ONDANSETRON INJ 2 MG/ML 2 ML VIAL IV PRN (14:06)
[2025-06-23] MEDS: ACETAMINOPHEN 325 MG TAB PO SCH (14:45)
[2025-06-23] MEDS: SIMETHICONE 80 MG CHEW PO SCH (14:45)
[2025-06-23] MEDS: DOCUSATE SODIUM 100 MG CAP PO SCH (21:04)
[2025-06-24] MEDS ORDERED: diphenhydrAMINE Capsule 25 MG CAP PO PRN (03:03)
[2025-06-24] MEDS ORDERED: HYDROmorphone INJ 0.5 MG/0.5 ML SYR IV PRN (03:03)
[2025-06-24] MEDS ORDERED: PROMETHAZINE 12.5 MG/50.5 ML BAG IV PRN (03:03)
[2025-06-24] MEDS ORDERED: ONDANSETRON INJ 2 MG/ML 2 ML VIAL IV PRN (03:03)
[2025-06-24] MEDS ORDERED: diphenhydrAMINE 50 MG/ML VIAL IV PRN (03:03)
--- NOTE | 2025-06-24 06:35 | Obstetrical Progress Note ---
Date of Service <Margaret Jules MD - Last Filed: 06/24/25 08:01> June 24, 2025 Assessment & Plan <Margaret Jules MD - Last Filed: 06/24/25 08:01> (1) care following delivery: Plan -Stable routine care. Breast feeding. Rhesus Positive. Rubella Immune. Surgical incision intact with sutures and edges properly annealed. No signs of infection at surgical site. Continue to monitor <Thi Rodriguez MD, FACOG - Last Filed: 06/24/25 08:09> (1) care following delivery: Subjective <Margaret Jules MD - Last Filed: 06/24/25 08:01> Ambulation: ambulating normally Voiding: no voiding problems Passing Gas:: Yes Diet Tolerance:: regular diet Lochia:: Small Feeding Type:: bottle feeding Current Pain Level(1-10): 0 Review of Systems All systems reviewed & are unremarkable except as noted in HPI & below i. Denies fever, chills, sweats ii. Denies SOB, difficulty breathing, chest pain, palpitations, chest pressure iii. Denies breast pain. iv. Denies Dysuria v. Denies headache or changes in vision. Physical Exam <Margaret Jules MD - Last Filed: 06/24/25 08:01> Constitutional WD/WN, vitals as above Respiratory normal respiratory effort, lungs clear to auscultation Cardiovascular RRR, no murmur, no edema Gastrointestinal (Abdomen) normal bowel sounds, soft, nontender, no hepatosplenomegaly Skin no rashes, warm and dry Psychiatric A+Ox3, euthymic affect Genitourinary On palpation of abdomen, uterus is firm and has begun involution, at approximatly 1cm/day Results & Data <Margaret Jules MD - Last Filed: 06/24/25 08:01> Vital Signs (Past 12 Hours) Vital Signs Temp Pulse Resp BP Pulse Ox O2 Del Method 06/24/25 03:10 36.5 C 85 16 111/71 98 Room Air 06/24/25 01:49 18 97 06/24/25 00:00 16 98 06/23/25 23:30 16 100 06/23/25 23:30 36.6 C 88 16 122/72 100 Room Air 06/23/25 22:00 16 98 06/23/25 21:00 18 98 06/23/25 20:00 16 96 06/23/25 19:30 36.3 C L 80 18 112/74 98 Room Air 06/23/25 19:00 16 98 Supervising Physician <Thi Rodriguez MD, FACOG - Last Filed: 06/24/25 08:09> Co-Signing Physician Notes Resident Physician Supervision Note: I interviewed and examined the patient. Discussed with Dr. Jules and agree with findings and plan as documented in the note. Any exceptions or clarifications are listed here: Doing well. ff/nt @u. Incision has been a little oozy overnight. Incision c/d/i, cannot get anything active from the incision. Routine pp day 1 care. Documented By: Thi Rodriguez MD, FACOG
[2025-06-24 07:17] LABS: Hematocrit (blood only) 33.1 % (37.0-47.0); Hemoglobin 11.3 g/dl (12.0-16.0); Immature Granulocytes # (auto) 0.04 K/uL (0.01-0.20); Immature Granulocytes % (auto) 0.4 %; Mean Corpuscular Hemoglobin 30.7 pg (25.0-34.0); Mean Corpuscular Volume 89.9 fL (80.0-100.0); Platelet Count 172 K/uL (130-400); RDW Standard Deviation 41.0 fL (36.4-46.3); Red Blood Count 3.68 M/uL (4.20-5.40); White Blood Count 10.44 K/ul (4.8-10.8)
[2025-06-24] MEDS ORDERED: KETOROLAC 30 MG/ML VIAL IV PRN (08:37)
[2025-06-24] MEDS: FERROUS SULFATE 325 MG TAB PO SCH (09:28)
[2025-06-24] MEDS: PRENATAL VITAMIN 1 TAB PO SCH (09:28)
[2025-06-24] MEDS: IBUPROFEN 600 MG TAB PO SCH (15:08)
[2025-06-24] MEDS: ENOXAPARIN INJ 40 MG/0.4 ML SYR SQ SCH (20:33)
[2025-06-24 23:12] VITALS: TEMP 97.5
[2025-06-25 07:01] LABS: Hematocrit (blood only) 33.8 % (37.0-47.0); Hemoglobin 11.0 g/dl (12.0-16.0)
[2025-06-25 07:42] VITALS: BP 114/72; PULSE 88; RESP 16; O2SAT 99
[2025-06-25] MEDS ORDERED: Nursing to Pharmacy Communication SCH (07:45)
--- NOTE | 2025-06-25 08:27 | Obstetrical Progress Note ---
Date of Service June 25, 2025 Assessment & Plan (1) care following delivery: 30 yo POD 2 from rLTCS/BTL, doing well -Meeting all pp milestones -O+/rubella immune -f/u 6 weeks for appt. Has 4-5d left of lovenox, she will reach out to heme for remaining pp dose. Stable for dc home Subjective Ambulation: ambulating normally Voiding: no voiding problems Passing Gas:: Yes Diet Tolerance:: regular diet Lochia:: Small Feeding Type:: bottle feeding Pain well managed with medication Review of Systems Denies fevers, chills, n/v, FIELDS, CP, SOB Physical Exam Constitutional WD/WN, vitals as above no acute distress Respiratory normal respiratory effort, lungs clear to auscultation Cardiovascular RRR, no murmur, no edema Gastrointestinal (Abdomen) Percussion/Palpation: abdomen soft; abdomen nontender fundus firm at umbilicus and NT, incision c/d/i Musculoskeletal BLE symmetric, nonerythematous, nontender Results & Data Vital Signs (Past 12 Hours) Vital Signs Temp Pulse Resp BP Pulse Ox O2 Del Method 06/25/25 07:40 97.5 F L 88 16 114/72 99 Room Air 06/24/25 23:11 97.5 F L 76 18 103/64 97 Room Air
[2025-06-25] MEDS ORDERED: IBUPROFEN 600 MG TAB PO PRN (08:37)
[2025-06-25] MEDS ORDERED: ACETAMINOPHEN 325 MG TAB PO PRN (14:37)
[2025-06-25] MEDS ORDERED: ENOXAPARIN INJ 40 MG/0.4 ML SYR SQ SCH (21:00)
--- NOTE | 2025-06-26 12:43 | Discharge Summary ---
Date of Service June 26, 2025 Admission HPI Per Admitting Provider Patient is a 30yowf at 39 5/7 who presents for repeat c/s and tubal ligation. complicated by what is noted below. Her last dose of heparin was yesterday am. GDM has been well controlled with diet. and Delivery Plans Transfer into care @ 15+ weeks Previous - Breech - Repeat at 39weeks w/BTL C/S WITH TUBAL SCHEDULED FOR 06/23/[address] 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 noted in last - Heme consult - Consider Rheum consult Suspected LGA - EFW 94% at 31 weeks - Growth US at 36 weeks--EFW >98% Polyhydramnios--------Resolved at 37wks *Weekly NSTs if fluid 12 or greater *Weekly AFIs @ Dx *If pocket >16 refer to [facility] *Deliver between [id number] GBS Positive *Treat in Labor OB Labs: Blood Type O Positive 01/12/25 Antibody Screen NEGATIVE 01/12/25 Hgb 13.0 g/dl (12.0-16.0) 04/06/25 Hct 38.5 % (37.0-47.0) 04/06/25 MCV 93.3 fL (80.0-100.0) 02/23/24 Plt Count 188 K/uL (130-400) 02/23/24 Rubella IgG Antibody Immune (Immune) 07/15/23 RPR Nonreactive (Nonreactive) 07/15/23 Treponema pallidum Ab Negative (Negative) 04/06/25 Hep Bs Antigen NON-REACTIVE (NON-REACTIVE) 07/15/23 Hepatitis C Ab (EIA) NON-REACTIVE (NON-REACTIVE) 07/15/23 HIV (1&2) Ag & Ab Conf NON-REACTIVE (NON-REACTIVE) 07/15/23 Glucose 1 Hr 50 gm 168 mg/dl (70-130) H 12/10/23 OB Optional Labs: Chlamydia trachomatis RNA Not Detected (NotDetected) 07/15/23 Neisseria gonorrhoeae RNA Not Detected (NotDetected) 07/15/23 Thyroid Stimulating Hormone (TSH) 3.900 uIu/ml (0.300-4.500) 08/17/21 Labs Reviewed: Initial OB Labs 11/30/24 Blood Type & RH Antibody Screen HCT/HGB 39.9/13.9 Platelets 203 Hep C IgG 13yrs+ Old non reactive Pap Test Chlamydia not detected Gonorrhea non detected Rubella immune RPR non reactive Urine Culture/Screen HBsAg non reactive HIV non reactive MCV 88 Discharge Data Consultations 06/23/25 05:35 Consult Anesthesiology Stat Procedures Performed Operation Date: 06/23/25 07:30 Actual Procedures p Section and delivery of infant male on 06/23/2025 at 0801 in L&D OR. - Thi Benavidez MD, [facility] [place] s with Bilateral Tubal Ligation - Thi Benavidez MD, [facility] [place] Hospital Course (1) care following delivery: (2) Previous delivery affecting , antepartum: (3) Factor V Leiden mutation complicating : Plan The patient was admitted and underwent an uncomplicated repeat lower transverse c/s and bilateral salpingectomy. [id number]. Her course was uncomplicated--tolerated regular diet, ambulated, pain controlled with oral pain meds, voided after removal of her [place]. Started on prophylactic lovenox on POD#1. d/c home on POD #2. f/u in 6 weeks. d/c h/h 11.0/33.8 Coding Level of Care Code None Diagnoses care following delivery Z39.2 Previous delivery affecting , antepartum O34.219 Factor V Leiden mutation complicating O99.119; D68.51
== END 2025-06-25 11:15 | disposition home or self-care (01) | DRG 784 ==
LOC: 4S1 05:41 → EDSTATUS 07:30 → 4E2 11:10
PROC: M.PPTLD (2025-06-23 07:30)
DX: O24.420 Gestational diabetes mellitus in childbirth, diet controlled; O69.81X0 Labor and delivery complicated by cord around neck, without compression, not applicable or unspecified; Z30.2 Encounter for sterilization; O40.3XX0 Polyhydramnios, third trimester, not applicable or unspecified; Z3A.39 39 weeks gestation of pregnancy; O99.824 Streptococcus B carrier state complicating childbirth; Z83.3 Family history of diabetes mellitus; Z37.0 Single live birth; D68.51 Activated protein C resistance; O99.12 Other diseases of the blood and blood-forming organs and certain disorders involving the immune mechanism complicating childbirth